=== PATIENT | male | born 1955 | race Caucasian/White ===

== ENCOUNTER 2018-03-25 04:44 | Inpatient (IN) | payer MEDICARE, OTHER ==
[~2018-03-25] VITALS: Ht 198.1 cm; Wt 90.5 kg
[~2018-03-25 04:44] MED LIST: ASPI-1009 PO; ATOR80TA PO; BENA40TA73 PO; CALC667T2 PO; CHOL200013; FURO-150 PO; NEPHC PO; VERA240C2 PO; VITA400C21 PO
[2018-03-25] MEDS ORDERED: morphine 4 MG/ML inj SYRINge IV ONE (05:05)
[2018-03-25 05:33] LABS: BASOPHILS % (AUTO) 0.3 % (0-1); EOSINOPHILS # (AUTO) 0.2 X10'3 (0-0.9); EOSINOPHILS % (AUTO) 2.5 % (0-6); HEMATOCRIT 27.1 % (42.0-52.0); HEMOGLOBIN 9.1 g/dl (14.0-17.9); LYMPHOCYTES # (AUTO) 1.1 X10'3 (1.1-4.8); LYMPHOCYTES % (AUTO) 17.4 % (21-51); MEAN CORPUSCULAR HEMOGLOBIN 32.4 PG (27.0-31.0); MEAN CORPUSCULAR HGB CONC 33.5 % (33.0-36.5); MEAN CORPUSCULAR VOLUME 96.5 FL (78-98); MEAN PLATELET VOLUME 7.9 FL (7.4-10.4); MONOCYTES # (AUTO) 0.5 X10'3 (0-0.9); MONOCYTES % (AUTO) 7.5 % (2-12); NEUTROPHILS # (AUTO) 4.7 X10'3 (1.8-7.7); NEUTROPHILS % (AUTO) 72.3 % (42-75); PLATELET COUNT 255 X10'3 (140-440); RED CELL DISTRIBUTION WIDTH 14.3 % (11.5-14.5); WHITE BLOOD COUNT 6.5 X10'3 (4.5-11.0)
[2018-03-25 05:49] LABS: ALANINE AMINOTRANSFERASE 12 U/L (12-78); ALBUMIN 3.1 G/DL (3.4-5.0); ALKALINE PHOSPHATASE 90 IU/L (46-116); ANION GAP 7 (8-16); ASPARTATE AMINO TRANSFERASE 8 U/L (10-37); BILIRUBIN,TOTAL 0.5 MG/DL (0.1-1.0); BLOOD UREA NITROGEN 50 MG/DL (7-18); BUN/CREATININE RATIO 7.8 (5.4-32.0); CALCIUM 9.5 MG/DL (8.5-10.1); CHLORIDE 97 MMOL/L (99-107); CREATININE 6.37 MG/DL (0.60-1.10); GLUCOSE 275 MG/DL (70-104); MAGNESIUM 1.9 MG/DL (1.5-2.4); POTASSIUM 4.2 MMOL/L (3.5-5.1); SODIUM 136 MMOL/L (135-145); TOTAL CARBON DIOXIDE 31.9 MMOL/L (24-32); TOTAL PROTEIN 6.3 G/DL (6.4-8.2); eGFR 9 ML/MIN
[2018-03-25 05:51] LABS: PROTHROMBIN TIME 10.4 SECONDS (9.0-12.0)
[2018-03-25] MEDS ORDERED: acetaminophen 650mg rectal suppository RC PRN (06:10)
[2018-03-25] MEDS ORDERED: acetaminophen 325mg tablet PO PRN (06:10)
[2018-03-25] MEDS ORDERED: glucagon, human recombinant 1mg kit SUBCUT PRN (06:10)
[2018-03-25] MEDS ORDERED: mag hydrox/Alum hydrox/simeth 30ml oral suspension PO PRN (06:10)
[2018-03-25] MEDS ORDERED: MESSAGE TO PHARMACY PO ONE (06:10)
[2018-03-25] MEDS ORDERED: dextrose ORAL solution 15 GM/59 ML bottle PO PRN (06:10)
[2018-03-25] MEDS ORDERED: dextrose 50%-water 50ml dispensing syringe IV PRN ×2 (06:10)
[2018-03-25 06:48] LABS: HEMOGLOBIN A1C 8.1 % (4.5-6.2)
[2018-03-25] MEDS ORDERED: PANT40TA4 PO (07:39)
[2018-03-25] MEDS ORDERED: AMIO200T40 PO (07:39)
[2018-03-25] MEDS: docusate sod 100mg capsule PO SCH ×2 (08:00→20:00)
[2018-03-25] MEDS ORDERED: normal saline 1000ml 250 ML IV PRN (08:23)
[2018-03-25] MEDS ORDERED: epoetin 20,000 units/ml inj IV ONE (08:25)
[2018-03-25] MEDS ORDERED: heparin 1,000 units/ml 10ml inj IV ONE (08:25)
[2018-03-25] MEDS ORDERED: LIDOcaine 1% (10mg/ml) 2ml vial SQ ONE (08:25)
[2018-03-25 08:45] VITALS: BP 172/68
[2018-03-25] MEDS: morphine 2 MG/ML inj. syringe IV PRN ×3 (08:56→20:33)
[2018-03-25] MEDS: insulin Lispro (HumaLOG) vial - multi-dose SQ SCH ×2 (12:00→19:11)
[2018-03-25] MEDS ORDERED: ringers solution, lacted 1,000 ML IV ONE (17:46)
[2018-03-25 18:00] VITALS: BP 168/68
[2018-03-25] MEDS ORDERED: LANTUS SQ (20:31)
[2018-03-25] MEDS ORDERED: INSU100C10 SQ (20:31)
[2018-03-25] MEDS: insulin glargine (Lantus) pen - multi-dose SQ SCH (21:00)
[2018-03-25 21:26] VITALS: BP 172/66
[2018-03-25] MEDS ORDERED: amiodarone 200mg tablet PO ONE (21:45)
[2018-03-25] MEDS ORDERED: lisinopril 20mg tablet PO ONE (21:45)
[2018-03-25 22:00] VITALS: BP 172/64
[2018-03-26] VITALS (18 sets, daily range): BP systolic 110–198; BP diastolic 42–86
[2018-03-26 06:53] LABS: PARTIAL THROMBOPLASTIN TIME 27 SECONDS (22-32); PROTHROMBIN TIME 10.3 SECONDS (9.0-12.0)
[2018-03-26 06:57] LABS: ALANINE AMINOTRANSFERASE 28 U/L (12-78); ALBUMIN 2.8 G/DL (3.4-5.0); ALBUMIN/GLOBULIN RATIO 0.8 (1.1-1.5); ALKALINE PHOSPHATASE 146 IU/L (46-116); ANION GAP 7 (8-16); ASPARTATE AMINO TRANSFERASE 27 U/L (10-37); BILIRUBIN,TOTAL 0.8 MG/DL (0.1-1.0); BLOOD UREA NITROGEN 26 MG/DL (7-18); CALCIUM 8.6 MG/DL (8.5-10.1); CHLORIDE 95 MMOL/L (99-107); GLUCOSE 363 MG/DL (70-104); MAGNESIUM 1.8 MG/DL (1.5-2.4); PHOSPHORUS 2.9 MG/DL (2.3-4.5); POTASSIUM 4.7 MMOL/L (3.5-5.1); SODIUM 132 MMOL/L (135-145); TOTAL PROTEIN 6.2 G/DL (6.4-8.2); eGFR 14 ML/MIN
[2018-03-26 07:02] LABS: BASOPHILS % (AUTO) 0.9 % (0-1); EOSINOPHILS # (AUTO) 0.4 X10'3 (0-0.9); EOSINOPHILS % (AUTO) 6.8 % (0-6); HEMATOCRIT 27.5 % (42.0-52.0); HEMOGLOBIN 9.3 g/dl (14.0-17.9); LYMPHOCYTES # (AUTO) 1.3 X10'3 (1.1-4.8); LYMPHOCYTES % (AUTO) 24.1 % (21-51); MEAN CORPUSCULAR HEMOGLOBIN 32.7 PG (27.0-31.0); MEAN CORPUSCULAR HGB CONC 33.8 % (33.0-36.5); MEAN CORPUSCULAR VOLUME 96.7 FL (78-98); MONOCYTES # (AUTO) 0.4 X10'3 (0-0.9); MONOCYTES % (AUTO) 8.6 % (2-12); NEUTROPHILS # (AUTO) 3.1 X10'3 (1.8-7.7); NEUTROPHILS % (AUTO) 59.6 % (42-75); PLATELET COUNT 214 X10'3 (140-440); RED BLOOD COUNT 2.84 X10'6 (4.70-6.10); RED CELL DISTRIBUTION WIDTH 14.7 % (11.5-14.5); WHITE BLOOD COUNT 5.2 X10'3 (4.5-11.0)
[2018-03-26] MEDS: insulin Lispro (HumaLOG) vial - multi-dose SQ SCH ×3 (07:56→18:52)
[2018-03-26] MEDS: insulin glargine (Lantus) pen - multi-dose SQ SCH (07:57)
[2018-03-26] MEDS ORDERED: vancomycin/NS 1 GM ADD-VANTAGE 250 ML IV ONE (08:00)
[2018-03-26] MEDS ORDERED: clindamycin 600mg/D5W 50ml 50 ML IV ONE (08:00)
[2018-03-26] MEDS: pantoprazole 40mg Tablet.DR PO SCH (08:05)
[2018-03-26] MEDS: amiodarone 200mg tablet PO SCH (08:05)
[2018-03-26] MEDS: calcium acetate 667mg (PhosLO) capsule PO SCH ×3 (08:05→17:28)
[2018-03-26] MEDS: docusate sod 100mg capsule PO SCH ×2 (08:05→20:27)
[2018-03-26] MEDS: lisinopril 20mg tablet PO SCH ×2 (08:06→20:00)
[2018-03-26] MEDS: vitamin E 400 unit capsule PO SCH (08:08)
[2018-03-26] MEDS ORDERED: midazolam 2 mg/2 ml injection ONE (08:57)
[2018-03-26] MEDS ORDERED: fentaNYL/PF 50MCG/1 ML 2ML syringe ONE (08:57)
[2018-03-26] MEDS ORDERED: etomidate 2mg/ml inj. ONE ×2 (08:59→09:19)
[2018-03-26] MEDS ORDERED: sevoflurane 250ml liquid IH ONE (08:59)
[2018-03-26] MEDS ORDERED: ringers solution, lacted 1,000 ML IV SCH (09:04)
[2018-03-26] MEDS ORDERED: enalaprilat dihydrate 2.5mg/2ml vial IV PRN (09:05)
[2018-03-26] MEDS ORDERED: hydrALAZINE 20mg/ml inj. IV PRN (09:05)
[2018-03-26] MEDS ORDERED: fentaNYL/PF 50MCG/1 ML 2ML syringe IV PRN ×2 (09:05)
[2018-03-26] MEDS ORDERED: morphine 4 MG/ML inj SYRINge IV PRN ×2 (09:05)
[2018-03-26] MEDS ORDERED: ondansetron/PF 4mg/2ml inj IV PRN (09:05)
[2018-03-26] MEDS ORDERED: hydrALAZINE 20mg/ml inj. IV ONE (09:49)
[2018-03-26] MEDS: morphine 2 MG/ML inj. syringe IV PRN ×3 (10:43→18:58)
[2018-03-26] MEDS: HYDROcodone/acetaminophen 10/325mg tab PO PRN ×2 (12:10→16:17)
[2018-03-26] MEDS: atorvastatin 20mg tablet PO SCH (20:26)
[2018-03-27 02:45] VITALS: BP 162/49
[2018-03-27] MEDS: lisinopril 20mg tablet PO SCH ×2 (03:24→19:41)
[2018-03-27] MEDS: HYDROcodone/acetaminophen 10/325mg tab PO PRN ×3 (05:20→16:59)
[2018-03-27 06:00] VITALS: BP 168/59
[2018-03-27 06:51] LABS: BASOPHILS % (AUTO) 0.6 % (0-1); EOSINOPHILS # (AUTO) 0.4 X10'3 (0-0.9); EOSINOPHILS % (AUTO) 6.8 % (0-6); HEMATOCRIT 27.1 % (42.0-52.0); HEMOGLOBIN 9.1 g/dl (14.0-17.9); LYMPHOCYTES % (AUTO) 16.4 % (21-51); MEAN CORPUSCULAR HEMOGLOBIN 32.3 PG (27.0-31.0); MEAN CORPUSCULAR HGB CONC 33.4 % (33.0-36.5); MEAN CORPUSCULAR VOLUME 96.7 FL (78-98); MEAN PLATELET VOLUME 8.2 FL (7.4-10.4); MONOCYTES # (AUTO) 0.5 X10'3 (0-0.9); MONOCYTES % (AUTO) 8.3 % (2-12); NEUTROPHILS # (AUTO) 4.2 X10'3 (1.8-7.7); NEUTROPHILS % (AUTO) 67.9 % (42-75); PLATELET COUNT 220 X10'3 (140-440); RED BLOOD COUNT 2.81 X10'6 (4.70-6.10); RED CELL DISTRIBUTION WIDTH 14.5 % (11.5-14.5); WHITE BLOOD COUNT 6.1 X10'3 (4.5-11.0)
[2018-03-27 07:10] LABS: PARTIAL THROMBOPLASTIN TIME 29 SECONDS (22-32)
[2018-03-27 07:22] LABS: ALANINE AMINOTRANSFERASE 19 U/L (12-78); ALBUMIN 2.8 G/DL (3.4-5.0); ALBUMIN/GLOBULIN RATIO 0.8 (1.1-1.5); ALKALINE PHOSPHATASE 134 IU/L (46-116); ANION GAP 12 (8-16); ASPARTATE AMINO TRANSFERASE 12 U/L (10-37); BLOOD UREA NITROGEN 45 MG/DL (7-18); CALCIUM 9.1 MG/DL (8.5-10.1); CHLORIDE 91 MMOL/L (99-107); CREATININE 6.39 MG/DL (0.60-1.10); GLUCOSE 412 MG/DL (70-104); MAGNESIUM 1.8 MG/DL (1.5-2.4); PHOSPHORUS 3.6 MG/DL (2.3-4.5); POTASSIUM 5.1 MMOL/L (3.5-5.1); SODIUM 129 MMOL/L (135-145); TOTAL PROTEIN 6.2 G/DL (6.4-8.2); eGFR 9 ML/MIN
[2018-03-27] MEDS: insulin Lispro (HumaLOG) vial - multi-dose SQ SCH ×4 (07:42→19:29)
[2018-03-27] MEDS: docusate sod 100mg capsule PO SCH ×2 (07:43→19:33)
[2018-03-27] MEDS: vitamin E 400 unit capsule PO SCH (07:43)
[2018-03-27] MEDS: pantoprazole 40mg Tablet.DR PO SCH (07:43)
[2018-03-27] MEDS: amiodarone 200mg tablet PO SCH (07:43)
[2018-03-27] MEDS: calcium acetate 667mg (PhosLO) capsule PO SCH ×3 (07:43→16:59)
[2018-03-27 10:00] VITALS: BP 139/49
[2018-03-27 19:00] VITALS: BP 175/58
[2018-03-27] MEDS: atorvastatin 20mg tablet PO SCH (19:44)
[2018-03-27] MEDS: insulin glargine (Lantus) pen - multi-dose SQ SCH (21:00)
[2018-03-27 22:00] VITALS: BP 135/56
[2018-03-28 05:00] VITALS: BP 174/74
[2018-03-28] MEDS: morphine 2 MG/ML inj. syringe IV PRN (06:49)
[2018-03-28] MEDS: calcium acetate 667mg (PhosLO) capsule PO SCH ×3 (06:50→17:26)
[2018-03-28] MEDS: ondansetron/PF 4mg/2ml inj IV PRN (06:50)
[2018-03-28 07:09] LABS: BASOPHILS % (AUTO) 0.2 % (0-1); EOSINOPHILS # (AUTO) 0.3 X10'3 (0-0.9); EOSINOPHILS % (AUTO) 3.3 % (0-6); HEMATOCRIT 27.7 % (42.0-52.0); HEMOGLOBIN 9.2 g/dl (14.0-17.9); LYMPHOCYTES # (AUTO) 0.8 X10'3 (1.1-4.8); LYMPHOCYTES % (AUTO) 7.7 % (21-51); MEAN CORPUSCULAR HEMOGLOBIN 32.5 PG (27.0-31.0); MEAN CORPUSCULAR HGB CONC 33.3 % (33.0-36.5); MEAN CORPUSCULAR VOLUME 97.7 FL (78-98); MEAN PLATELET VOLUME 8.6 FL (7.4-10.4); MONOCYTES # (AUTO) 0.5 X10'3 (0-0.9); MONOCYTES % (AUTO) 4.5 % (2-12); NEUTROPHILS # (AUTO) 8.6 X10'3 (1.8-7.7); NEUTROPHILS % (AUTO) 84.3 % (42-75); PLATELET COUNT 271 X10'3 (140-440); RED BLOOD COUNT 2.83 X10'6 (4.70-6.10); RED CELL DISTRIBUTION WIDTH 14.1 % (11.5-14.5); WHITE BLOOD COUNT 10.2 X10'3 (4.5-11.0)
[2018-03-28 07:22] LABS: PARTIAL THROMBOPLASTIN TIME 30 SECONDS (22-32); PROTHROMBIN TIME 9.9 SECONDS (9.0-12.0)
[2018-03-28] MEDS: vitamin E 400 unit capsule PO SCH (07:23)
[2018-03-28 07:26] VITALS: BP 133/74
[2018-03-28] MEDS: amiodarone 200mg tablet PO SCH (07:27)
[2018-03-28] MEDS: lisinopril 20mg tablet PO SCH ×2 (07:27→19:41)
[2018-03-28] MEDS: pantoprazole 40mg Tablet.DR PO SCH (07:27)
[2018-03-28] MEDS: docusate sod 100mg capsule PO SCH ×2 (07:27→19:40)
[2018-03-28 07:35] LABS: ALANINE AMINOTRANSFERASE 16 U/L (12-78); ALBUMIN 2.9 G/DL (3.4-5.0); ALBUMIN/GLOBULIN RATIO 0.7 (1.1-1.5); ALKALINE PHOSPHATASE 138 IU/L (46-116); ANION GAP 23 (8-16); ASPARTATE AMINO TRANSFERASE 11 U/L (10-37); BILIRUBIN,TOTAL 0.9 MG/DL (0.1-1.0); BLOOD UREA NITROGEN 65 MG/DL (7-18); BUN/CREATININE RATIO 7.8 (5.4-32.0); CALCIUM 9.4 MG/DL (8.5-10.1); CHLORIDE 83 MMOL/L (99-107); CREATININE 8.32 MG/DL (0.60-1.10); MAGNESIUM 1.9 MG/DL (1.5-2.4); PHOSPHORUS 4.2 MG/DL (2.3-4.5); SODIUM 123 MMOL/L (135-145); TOTAL CARBON DIOXIDE 16.6 MMOL/L (24-32); eGFR 7 ML/MIN
[2018-03-28 07:37] LABS: GLUCOSE 579 MG/DL (70-104); POTASSIUM 6.7 MMOL/L (3.5-5.1)
[2018-03-28] MEDS ORDERED: insulin regular, human 10 units/0.1 ml syringe SQ STA (07:49)
[2018-03-28] MEDS ORDERED: insulin Lispro (HumaLOG) vial - multi-dose SQ ONE (08:00)
[2018-03-28] MEDS ORDERED: heparin 1,000 units/ml 10ml inj IV ONE (08:15)
[2018-03-28] MEDS ORDERED: albumin (human) 25% 100ml IV 100 ML IV PRN (08:15)
[2018-03-28] MEDS ORDERED: epoetin 20,000 units/ml inj IV ONE (08:15)
[2018-03-28 10:00] VITALS: BP 139/46
[2018-03-28] MEDS: insulin Lispro (HumaLOG) vial - multi-dose SQ SCH ×2 (13:29→18:59)
[2018-03-28 14:00] VITALS: BP 125/49
[2018-03-28] MEDS ORDERED: clindamycin 600mg/D5W 50ml 50 ML IV ONE (17:15)
[2018-03-28 18:00] VITALS: BP 136/45
[2018-03-28] MEDS: atorvastatin 20mg tablet PO SCH (19:41)
[2018-03-28] MEDS: insulin glargine (Lantus) pen - multi-dose SQ SCH (21:00)
[2018-03-28 22:00] VITALS: BP 147/52
[2018-03-29] MEDS: HYDROcodone/acetaminophen 10/325mg tab PO PRN ×2 (04:40→10:19)
[2018-03-29 06:46] LABS: BASOPHILS % (AUTO) 0.5 % (0-1); EOSINOPHILS # (AUTO) 0.3 X10'3 (0-0.9); EOSINOPHILS % (AUTO) 5.2 % (0-6); HEMATOCRIT 24.4 % (42.0-52.0); LYMPHOCYTES # (AUTO) 1.2 X10'3 (1.1-4.8); LYMPHOCYTES % (AUTO) 19.7 % (21-51); MEAN CORPUSCULAR HEMOGLOBIN 32.1 PG (27.0-31.0); MEAN CORPUSCULAR HGB CONC 32.7 % (33.0-36.5); MEAN PLATELET VOLUME 8.3 FL (7.4-10.4); MONOCYTES # (AUTO) 0.6 X10'3 (0-0.9); MONOCYTES % (AUTO) 9.9 % (2-12); NEUTROPHILS # (AUTO) 4.1 X10'3 (1.8-7.7); NEUTROPHILS % (AUTO) 64.7 % (42-75); PLATELET COUNT 243 X10'3 (140-440); RED BLOOD COUNT 2.49 X10'6 (4.70-6.10); RED CELL DISTRIBUTION WIDTH 14.6 % (11.5-14.5); WHITE BLOOD COUNT 6.3 X10'3 (4.5-11.0)
[2018-03-29 07:15] LABS: PROTHROMBIN TIME 10.3 SECONDS (9.0-12.0)
[2018-03-29 07:24] LABS: ALANINE AMINOTRANSFERASE 10 U/L (12-78); ALBUMIN 2.6 G/DL (3.4-5.0); ALBUMIN/GLOBULIN RATIO 0.7 (1.1-1.5); ALKALINE PHOSPHATASE 114 IU/L (46-116); ANION GAP 21 (8-16); ASPARTATE AMINO TRANSFERASE 8 U/L (10-37); BILIRUBIN,TOTAL 0.7 MG/DL (0.1-1.0); BLOOD UREA NITROGEN 41 MG/DL (7-18); BUN/CREATININE RATIO 6.8 (5.4-32.0); CALCIUM 9.2 MG/DL (8.5-10.1); CHLORIDE 91 MMOL/L (99-107); CREATININE 6.04 MG/DL (0.60-1.10); PHOSPHORUS 3.9 MG/DL (2.3-4.5); SODIUM 131 MMOL/L (135-145); TOTAL CARBON DIOXIDE 18.7 MMOL/L (24-32); TOTAL PROTEIN 6.1 G/DL (6.4-8.2); eGFR 10 ML/MIN
[2018-03-29 07:26] LABS: GLUCOSE 475 MG/DL (70-104)
[2018-03-29 07:30] VITALS: BP 140/56
[2018-03-29] MEDS: pantoprazole 40mg Tablet.DR PO SCH (07:46)
[2018-03-29] MEDS: calcium acetate 667mg (PhosLO) capsule PO SCH ×3 (07:46→17:47)
[2018-03-29] MEDS: lisinopril 20mg tablet PO SCH ×2 (07:46→20:57)
[2018-03-29] MEDS: docusate sod 100mg capsule PO SCH ×2 (07:46→20:56)
[2018-03-29] MEDS: amiodarone 200mg tablet PO SCH (07:47)
[2018-03-29] MEDS: vitamin E 400 unit capsule PO SCH (07:47)
[2018-03-29] MEDS: insulin Lispro (HumaLOG) vial - multi-dose SQ SCH ×3 (08:38→18:43)
[2018-03-29 10:00] VITALS: BP 128/43
[2018-03-29] MEDS: ondansetron/PF 4mg/2ml inj IV PRN (10:20)
[2018-03-29 18:00] VITALS: BP 161/58
[2018-03-29] MEDS: atorvastatin 20mg tablet PO SCH (20:57)
[2018-03-29] MEDS: insulin glargine (Lantus) pen - multi-dose SQ SCH (21:49)
[2018-03-29 22:00] VITALS: BP 141/52
[2018-03-30 06:08] LABS: PROTHROMBIN TIME 10.2 SECONDS (9.0-12.0)
[2018-03-30 06:13] LABS: BASOPHILS % (AUTO) 0.5 % (0-1); EOSINOPHILS # (AUTO) 0.4 X10'3 (0-0.9); EOSINOPHILS % (AUTO) 6.8 % (0-6); HEMATOCRIT 23.6 % (42.0-52.0); HEMOGLOBIN 7.9 g/dl (14.0-17.9); LYMPHOCYTES # (AUTO) 1.1 X10'3 (1.1-4.8); LYMPHOCYTES % (AUTO) 20.8 % (21-51); MEAN CORPUSCULAR HEMOGLOBIN 32.7 PG (27.0-31.0); MEAN CORPUSCULAR HGB CONC 33.7 % (33.0-36.5); MEAN CORPUSCULAR VOLUME 97.1 FL (78-98); MONOCYTES # (AUTO) 0.5 X10'3 (0-0.9); MONOCYTES % (AUTO) 9.1 % (2-12); NEUTROPHILS # (AUTO) 3.5 X10'3 (1.8-7.7); NEUTROPHILS % (AUTO) 62.8 % (42-75); PLATELET COUNT 256 X10'3 (140-440); RED BLOOD COUNT 2.43 X10'6 (4.70-6.10); RED CELL DISTRIBUTION WIDTH 14.4 % (11.5-14.5); WHITE BLOOD COUNT 5.5 X10'3 (4.5-11.0)
[2018-03-30 06:21] LABS: ALANINE AMINOTRANSFERASE 11 U/L (12-78); ALBUMIN 2.6 G/DL (3.4-5.0); ALBUMIN/GLOBULIN RATIO 0.8 (1.1-1.5); ALKALINE PHOSPHATASE 115 IU/L (46-116); ANION GAP 22 (8-16); ASPARTATE AMINO TRANSFERASE 7 U/L (10-37); BILIRUBIN,TOTAL 0.6 MG/DL (0.1-1.0); BLOOD UREA NITROGEN 56 MG/DL (7-18); CALCIUM 9.5 MG/DL (8.5-10.1); CHLORIDE 89 MMOL/L (99-107); CREATININE 7.95 MG/DL (0.60-1.10); GLUCOSE 362 MG/DL (70-104); PHOSPHORUS 3.7 MG/DL (2.3-4.5); POTASSIUM 5.2 MMOL/L (3.5-5.1); SODIUM 129 MMOL/L (135-145); TOTAL CARBON DIOXIDE 18.2 MMOL/L (24-32); eGFR 7 ML/MIN
[2018-03-30 07:11] VITALS: BP 148/54
[2018-03-30] MEDS: calcium acetate 667mg (PhosLO) capsule PO SCH ×3 (07:37→19:36)
[2018-03-30] MEDS: docusate sod 100mg capsule PO SCH ×2 (07:42→19:36)
[2018-03-30] MEDS: lisinopril 20mg tablet PO SCH ×2 (07:42→19:36)
[2018-03-30] MEDS: vitamin E 400 unit capsule PO SCH (07:42)
[2018-03-30] MEDS: amiodarone 200mg tablet PO SCH (07:43)
[2018-03-30] MEDS: pantoprazole 40mg Tablet.DR PO SCH (07:43)
[2018-03-30] MEDS ORDERED: normal saline 1000ml 250 ML IV PRN (08:00)
[2018-03-30] MEDS ORDERED: heparin 1,000 units/ml 10ml inj IV ONE (08:00)
[2018-03-30] MEDS ORDERED: epoetin 20,000 units/ml inj IV ONE (08:00)
[2018-03-30] MEDS ORDERED: LIDOcaine 1% (10mg/ml) 2ml vial SQ ONE (08:00)
[2018-03-30] MEDS: ondansetron/PF 4mg/2ml inj IV PRN (08:23)
[2018-03-30] MEDS: insulin Lispro (HumaLOG) vial - multi-dose SQ SCH ×3 (09:35→19:35)
[2018-03-30 12:45] VITALS: BP 149/49
[2018-03-30 19:38] VITALS: BP 154/64
[2018-03-30] MEDS: insulin glargine (Lantus) pen - multi-dose SQ SCH (21:37)
[2018-03-30] MEDS: atorvastatin 20mg tablet PO SCH (21:45)
[2018-03-30 22:00] VITALS: BP 141/62
[2018-03-31 06:00] VITALS: BP 174/58
[2018-03-31] MEDS: calcium acetate 667mg (PhosLO) capsule PO SCH ×3 (08:00→17:57)
[2018-03-31] MEDS: amiodarone 200mg tablet PO SCH (08:00)
[2018-03-31] MEDS: docusate sod 100mg capsule PO SCH ×2 (08:00→20:06)
[2018-03-31] MEDS: vitamin E 400 unit capsule PO SCH (08:01)
[2018-03-31] MEDS: pantoprazole 40mg Tablet.DR PO SCH (08:01)
[2018-03-31] MEDS: lisinopril 20mg tablet PO SCH ×2 (08:02→20:12)
[2018-03-31] MEDS: insulin Lispro (HumaLOG) vial - multi-dose SQ SCH ×3 (09:37→20:01)
[2018-03-31 10:00] VITALS: BP 166/56
[2018-03-31] MEDS: HYDROcodone/acetaminophen 10/325mg tab PO PRN (15:35)
[2018-03-31 18:00] VITALS: BP 154/56
[2018-03-31] MEDS: dextrose ORAL solution 15 GM/59 ML bottle PO PRN (18:09)
[2018-03-31] MEDS: atorvastatin 20mg tablet PO SCH (20:06)
[2018-03-31 22:00] VITALS: BP 155/61
[2018-03-31] MEDS: insulin glargine (Lantus) pen - multi-dose SQ SCH (22:16)
[2018-04-01 06:00] VITALS: BP 137/71
[2018-04-01 06:38] LABS: HEMATOCRIT 23.9 % (42.0-52.0); HEMOGLOBIN 8.1 g/dl (14.0-17.9); MEAN CORPUSCULAR HEMOGLOBIN 32.6 PG (27.0-31.0); MEAN CORPUSCULAR HGB CONC 33.9 % (33.0-36.5); MEAN PLATELET VOLUME 7.5 FL (7.4-10.4); PLATELET COUNT 236 X10'3 (140-440); RED BLOOD COUNT 2.49 X10'6 (4.70-6.10); RED CELL DISTRIBUTION WIDTH 14.3 % (11.5-14.5); WHITE BLOOD COUNT 4.1 X10'3 (4.5-11.0)
[2018-04-01] MEDS ORDERED: heparin 1,000unit/ml 10ml vial 10 ML IV ONE (08:00)
[2018-04-01] MEDS ORDERED: normal saline 1000ml 250 ML IV PRN (08:00)
[2018-04-01] MEDS ORDERED: LIDOcaine 1% (10mg/ml) 2ml vial SQ ONE (08:00)
[2018-04-01] MEDS ORDERED: epoetin 20,000 units/ml inj IV ONE (08:00)
[2018-04-01] MEDS: calcium acetate 667mg (PhosLO) capsule PO SCH ×3 (08:06→17:58)
[2018-04-01] MEDS: amiodarone 200mg tablet PO SCH (08:06)
[2018-04-01] MEDS: pantoprazole 40mg Tablet.DR PO SCH (08:06)
[2018-04-01] MEDS: docusate sod 100mg capsule PO SCH ×2 (08:06→21:12)
[2018-04-01] MEDS: lisinopril 20mg tablet PO SCH ×2 (08:16→21:12)
[2018-04-01] MEDS: vitamin E 400 unit capsule PO SCH (08:17)
[2018-04-01 10:00] VITALS: BP 197/74
[2018-04-01] MEDS: insulin Lispro (HumaLOG) vial - multi-dose SQ SCH ×3 (10:30→19:39)
[2018-04-01 18:00] VITALS: BP 141/58
[2018-04-01] MEDS: dextrose ORAL solution 15 GM/59 ML bottle PO PRN (18:04)
[2018-04-01] MEDS: atorvastatin 20mg tablet PO SCH (21:12)
[2018-04-01] MEDS: insulin glargine (Lantus) pen - multi-dose SQ SCH (21:45)
[2018-04-01 22:00] VITALS: BP 174/62
[2018-04-02] MEDS ORDERED: hyDRALAzine 10mg tablet PO ONE (00:05)
[2018-04-02] MEDS ORDERED: hydrALAZINE 25 MG tablet PO ONE ×2 (01:45→01:50)
[2018-04-02 05:00] VITALS: BP 184/75
[2018-04-02] MEDS: amiodarone 200mg tablet PO SCH (07:27)
[2018-04-02] MEDS: docusate sod 100mg capsule PO SCH (07:27)
[2018-04-02] MEDS: pantoprazole 40mg Tablet.DR PO SCH (07:27)
[2018-04-02] MEDS: calcium acetate 667mg (PhosLO) capsule PO SCH ×2 (07:27→12:59)
[2018-04-02] MEDS: vitamin E 400 unit capsule PO SCH (07:28)
[2018-04-02] MEDS: lisinopril 20mg tablet PO SCH (07:28)
[2018-04-02] MEDS: insulin Lispro (HumaLOG) vial - multi-dose SQ SCH ×2 (09:36→13:35)
[2018-04-02 10:00] VITALS: BP 156/57
[2018-04-02] MEDS: dextrose ORAL solution 15 GM/59 ML bottle PO PRN (16:54)
== END 2018-04-02 17:45 | disposition home health service (06) | DRG 480 ==
LOC: ER 04:44 → ED HOLD 06:08 → ORTHO 4S 08:49
PROVIDERS: ADMIT Internal Medicine Critical Care Medicine; ATTEND Internal Medicine Critical Care Medicine
PROC: 5A1D70Z Performance of Urinary Filtration, Intermittent, Less than 6 Hours Per Day (ICD-10-PCS; 2018-03-25)
PROC: 0QH634Z Insertion of Internal Fixation Device into Right Upper Femur, Percutaneous Approach (ICD-10-PCS; principal; 2018-03-26 08:59)
PROC: 5A1D70Z Performance of Urinary Filtration, Intermittent, Less than 6 Hours Per Day (ICD-10-PCS; 2018-03-28)
PROC: 5A1D70Z Performance of Urinary Filtration, Intermittent, Less than 6 Hours Per Day (ICD-10-PCS; 2018-03-30)
PROC: 5A1D70Z Performance of Urinary Filtration, Intermittent, Less than 6 Hours Per Day (ICD-10-PCS; 2018-04-01)
DX: S72.001A Fracture of unspecified part of neck of right femur, initial encounter for closed fracture (principal); N18.6 End stage renal disease; I12.0 Hypertensive chronic kidney disease with stage 5 chronic kidney disease or end stage renal disease; I69.354 Hemiplegia and hemiparesis following cerebral infarction affecting left non-dominant side; E87.1 Hypo-osmolality and hyponatremia; E10.22 Type 1 diabetes mellitus with diabetic chronic kidney disease; W10.1XXA Fall (on)(from) sidewalk curb, initial encounter; E10.65 Type 1 diabetes mellitus with hyperglycemia; E10.21 Type 1 diabetes mellitus with diabetic nephropathy; D64.9 Anemia, unspecified; E87.5 Hyperkalemia; R26.81 Unsteadiness on feet; Z99.2 Dependence on renal dialysis; Z90.49 Acquired absence of other specified parts of digestive tract; Z88.0 Allergy status to penicillin; Z88.2 Allergy status to sulfonamides; Z79.82 Long term (current) use of aspirin; Z79.899 Other long term (current) drug therapy; Z82.49 Family history of ischemic heart disease and other diseases of the circulatory system; Z83.3 Family history of diabetes mellitus; Z80.9 Family history of malignant neoplasm, unspecified; Y93.89 Activity, other specified; Y92.89 Other specified places as the place of occurrence of the external cause; Y99.8 Other external cause status
CPT/HCPCS: 36415; 71045; 73501; 73502; 76000; 80053; 82948; 83036; 83735; 84100; 85025; 85027; 85610; 85730; 86885; 86900; 86901; 87070; 93005; 96374; 97110; 97116; 97162; 97530; 99285; A6258; A6446; A6449; A7000; C1713; G0257; G0378; J0360; J0885; J1644; J1815; J2250; J2270; J2405; J3010; J3370; J3490; J7120